=== PATIENT | female | born 1945 | race Caucasian/White ===

== ENCOUNTER → 2017-08-15 09:53 | Outpatient (CLI) | payer OTHER ==
[~2017-08-15 09:53] MED LIST: ASPIR 8181 MG; CEPHALEXIN250 M1 PO; CIPRO500 MG PO; COZAAR25 MG PO; CRESTOR10 MG; INTESTINEX1 CA1 PO; NORVASC2.5 M1 PO; OXYC1TAB9 PO; PRILOSEC20 MG PO; [UNRECOGNIZED DRUG - OTHER] OP
== END | disposition home or self-care (01) ==
LOC: LAB 09:53
DX: D64.89 Other specified anemias (principal); N39.0 Urinary tract infection, site not specified; R10.9 Unspecified abdominal pain; E03.8 Other specified hypothyroidism; E78.4 Other hyperlipidemia; E55.9 Vitamin D deficiency, unspecified; R80.8 Other proteinuria; E11.9 Type 2 diabetes mellitus without complications; R73.09 Other abnormal glucose

== ENCOUNTER → 2017-12-05 09:16 | Outpatient (CLI) | payer OTHER | END | disposition home or self-care (01) | LOC: LAB 09:16 | DX: D64.89 Other specified anemias (principal); N39.0 Urinary tract infection, site not specified; R10.84 Generalized abdominal pain; E03.8 Other specified hypothyroidism; E78.4 Other hyperlipidemia; E55.9 Vitamin D deficiency, unspecified; R80.8 Other proteinuria; E11.9 Type 2 diabetes mellitus without complications; R73.09 Other abnormal glucose; E78.2 Mixed hyperlipidemia; I11.9 Hypertensive heart disease without heart failure; E56.8 Deficiency of other vitamins; E11.8 Type 2 diabetes mellitus with unspecified complications ==

== ENCOUNTER 2018-05-06 09:06 | Outpatient (CLI) | payer OTHER | END 2018-05-06 09:21 | disposition home or self-care (01) | LOC: LAB 09:06 | DX: D64.89 Other specified anemias (principal); N39.0 Urinary tract infection, site not specified; R10.84 Generalized abdominal pain; E03.8 Other specified hypothyroidism; R80.8 Other proteinuria; E11.9 Type 2 diabetes mellitus without complications; E78.2 Mixed hyperlipidemia; I11.9 Hypertensive heart disease without heart failure ==

== ENCOUNTER 2018-06-04 09:48 | Outpatient (CLI) | payer OTHER | END 2018-06-04 18:50 | disposition home or self-care (01) | LOC: LAB 09:48 | DX: I11.9 Hypertensive heart disease without heart failure (principal); E78.2 Mixed hyperlipidemia; R10.13 Epigastric pain ==

== ENCOUNTER 2018-08-26 11:41 | Outpatient (CLI) | payer OTHER | END 2018-08-26 14:08 | disposition home or self-care (01) | LOC: RAD 11:41 | DX: M62.830 Muscle spasm of back (principal) ==

== ENCOUNTER 2018-09-01 10:05 | Outpatient (CLI) | payer OTHER | END 2018-09-01 10:12 | disposition home or self-care (01) | LOC: LAB 10:05 | DX: D64.89 Other specified anemias (principal); N39.0 Urinary tract infection, site not specified; R10.84 Generalized abdominal pain; E03.8 Other specified hypothyroidism; E78.49 Other hyperlipidemia; R80.8 Other proteinuria; E11.9 Type 2 diabetes mellitus without complications; R73.09 Other abnormal glucose; I11.9 Hypertensive heart disease without heart failure; E78.2 Mixed hyperlipidemia; E11.8 Type 2 diabetes mellitus with unspecified complications ==

== ENCOUNTER 2018-09-09 13:22 | Outpatient (CLI) | payer OTHER | END 2018-09-09 13:28 | disposition home or self-care (01) | LOC: LAB 13:22 | DX: R97.8 Other abnormal tumor markers (principal); E83.51 Hypocalcemia ==

== ENCOUNTER 2018-09-12 10:27 | Outpatient (CLI) | payer OTHER | END 2018-09-12 10:30 | disposition home or self-care (01) | LOC: SONOGRAMA 10:27 | DX: Z12.31 Encounter for screening mammogram for malignant neoplasm of breast (principal); Z87.898 Personal history of other specified conditions; N60.11 Diffuse cystic mastopathy of right breast; N60.12 Diffuse cystic mastopathy of left breast ==

== ENCOUNTER 2018-09-12 12:23 | Outpatient (CLI) | payer OTHER | END 2018-09-12 16:10 | disposition home or self-care (01) | LOC: RAD 12:23 | DX: R06.02 Shortness of breath (principal) ==

== ENCOUNTER → 2018-11-03 08:50 | Outpatient (CLI) | payer OTHER | END | disposition home or self-care (01) | LOC: LAB 08:50 | DX: D64.89 Other specified anemias (principal); N39.0 Urinary tract infection, site not specified; R10.9 Unspecified abdominal pain; E78.49 Other hyperlipidemia; E11.9 Type 2 diabetes mellitus without complications; I10 Essential (primary) hypertension; Z13.6 Encounter for screening for cardiovascular disorders ==

== ENCOUNTER 2018-11-24 15:15 | Outpatient (CLI) | payer OTHER | END 2018-11-24 15:33 | disposition home or self-care (01) | LOC: LAB 15:15 | DX: D64.89 Other specified anemias (principal); R10.9 Unspecified abdominal pain; Z13.89 Encounter for screening for other disorder ==

== ENCOUNTER → 2018-11-26 | Outpatient (CLI) | payer OTHER | END | disposition home or self-care (01) | LOC: LAB 07:48 | DX: D64.89 Other specified anemias (principal); R80.8 Other proteinuria; Z13.89 Encounter for screening for other disorder ==

== ENCOUNTER 2019-04-30 09:18 | Outpatient (CLI) | payer OTHER | END 2019-04-30 09:24 | disposition home or self-care (01) | LOC: LAB 09:18 | DX: E03.8 Other specified hypothyroidism (principal); R10.84 Generalized abdominal pain; E11.9 Type 2 diabetes mellitus without complications; N39.0 Urinary tract infection, site not specified; D64.89 Other specified anemias; I10 Essential (primary) hypertension; E88.09 Other disorders of plasma-protein metabolism, not elsewhere classified ==

== ENCOUNTER 2021-10-27 10:55 | Emergency (ER) | payer OTHER ==
[~2021-10-27] VITALS: Ht 157.5 cm; Wt 68.0 kg
[2021-10-27] MEDS ORDERED: HYDRALAZINE HCL50 MG PO (11:25)
[2021-10-27] MEDS ORDERED: ALDACTONE25 MG PO (11:26)
[2021-10-27] MEDS ORDERED: CARDURA XL4 MG PO (11:26)
[2021-10-27] MEDS ORDERED: CRESTOR5 MG PO (11:27)
[2021-10-27] MEDS ORDERED: PEPCID20 MG PO (16:21)
[2021-10-27] MEDS ORDERED: INTESTINEX680 M1 PO (16:21)
== END 2021-10-27 20:15 | disposition home or self-care (01) ==
LOC: ER 10:55
DX: R19.7 Diarrhea, unspecified (principal); I10 Essential (primary) hypertension

== ENCOUNTER 2022-02-01 10:20 | Outpatient (CLI) | payer OTHER | END 2022-02-01 10:44 | disposition home or self-care (01) | LOC: RAD 10:20 | PROVIDERS: ATTEND Internal Medicine | DX: Z12.31 Encounter for screening mammogram for malignant neoplasm of breast (principal); E03.8 Other specified hypothyroidism; J45.20 Mild intermittent asthma, uncomplicated; E04.2 Nontoxic multinodular goiter ==

== ENCOUNTER → 2022-02-01 | Outpatient (CLI) | payer OTHER ==
[~2022-02-01] MED LIST changes: +ALDACTONE25 MG PO; +CARDURA XL4 MG PO; +CRESTOR5 MG PO; +HYDRALAZINE HCL50 MG PO; +INTESTINEX680 M1 PO; +PEPCID20 MG PO
== END | disposition home or self-care (01) ==
LOC: NUCLEAR 11:56
PROVIDERS: ATTEND Internal Medicine
DX: Z13.820 Encounter for screening for osteoporosis (principal)

== ENCOUNTER 2022-05-17 09:48 | Outpatient (CLI) | payer OTHER | END 2022-05-17 10:13 | disposition home or self-care (01) | LOC: SONOGRAMA 09:48 | PROVIDERS: ATTEND Pathology Anatomic Pathology & Clinical Pathology | DX: K76.89 Other specified diseases of liver (principal); N20.0 Calculus of kidney ==

== ENCOUNTER 2024-02-25 09:59 | Outpatient (CLI) | payer OTHER | END 2024-02-25 10:07 | disposition home or self-care (01) | LOC: MAMO-SONO 09:59 | PROVIDERS: ATTEND Internal Medicine | DX: R92.1 Mammographic calcification found on diagnostic imaging of breast (principal); Z12.31 Encounter for screening mammogram for malignant neoplasm of breast; E04.2 Nontoxic multinodular goiter ==

== ENCOUNTER 2024-02-25 11:23 | Outpatient (CLI) | payer OTHER | END 2024-02-25 11:24 | disposition home or self-care (01) | LOC: RAD 11:23 | PROVIDERS: ATTEND Internal Medicine | DX: M54.50 Low back pain, unspecified (principal); M25.552 Pain in left hip ==

== ENCOUNTER 2024-03-03 13:52 | Outpatient (CLI) | payer OTHER | END 2024-03-03 13:54 | disposition home or self-care (01) | LOC: NUCLEAR 13:52 | PROVIDERS: ATTEND Internal Medicine | DX: M81.0 Age-related osteoporosis without current pathological fracture (principal) ==